=== PATIENT | female | born 1945 | race Caucasian/White ===

== ENCOUNTER 2024-05-27 11:15 | Day surgery (SDC) | payer MEDICARE ==
[~2024-05-27] VITALS: Ht 182.9 cm; Wt 73.5 kg
[2024-05-27] VITALS (11 sets, daily range): BP systolic 114–131; BP diastolic 44–76; PULSE 60–92; RESP 16–18; TEMP 97.6–98.7; O2SAT 94–99
[~2024-05-27 11:15] MED LIST: AMIO200T55 PO; APIX5TAB PO; CARV12.5 PO; CHOL125C6 PO; EMPA25TA PO; FURO-80 PO; HEPARIN ONE; NITROGLYCERIN 25MG/D5W 250ML 250 ML IV ONE; NS 1000ML 1,000 ML ONE; OLME20TA72 PO; PYRI50CA2 PO; SPIR25TA PO; SUBLIMAZE 100MCG/2ML ONE; THYR30TA PO; VERSED ONE; XYLOCAINE ONE; [UNRECOGNIZED DRUG - CODE] PO
[2024-05-27] MEDS: NS 1000ML 1,000 ML IV ONE (11:40)
[2024-05-27 11:49] LABS: +ADD MANUAL DIFF(NO CHRG) NO; BASOPHIL % 0.5 % (0.1-1.2); EOSINOPHIL # 0.1 10^3/uL (0.0-0.2); EOSINOPHIL % 1.3 % (0.0-5.0); HEMATOCRIT(ML) 43.9 % (36.0-46.0); HEMOGLOBIN 13.9 g/dL (12.0-15.0); LYMPHOCYTES # 1.16 10^3/uL1 (1.0-4.8); LYMPHOCYTES % 15.2 % (24.0-44.0); MEAN CORP HGB 29.1 pg (26-34); MEAN CORP HGB CONCENTRATION 31.7 g/dL (33-36.5); MONOCYTES # 0.6 10^3/uL (0.3-0.8); MONOCYTES % 7.3 % (5.0-12.0); NEUTROPHIL # 5.8 10^3/uL (1.8-7.7); NEUTROPHILS % 75.6 % (41.0-85.0); PLATELET COUNT 268 10^3/uL (150-400); RED BLOOD CELL 4.77 10^6/uL (4.00-5.20); RED CELL DISTRIBUTION WIDTH 15.9 % (11.5-14.5); WHITE BLOOD CELL 7.7 10^3/uL (4.5-11.0)
[2024-05-27 12:00] LABS: ANION GAP 16.9; BUN/CREATININE RATIO 20.17 (10.0-20.0); CALCIUM 10.1 mg/dL (8.4-10.5); CARBON DIOXIDE 23.4 mmol/L (20.0-32); CREATININE SERUM 3.52 mg/dL (0.59-1.40); EST GFR, NON-AA 12.5 (>/=60); POTASSIUM 4.3 mmol/L (3.6-5.2)
[2024-05-27 12:03] LABS: INR 1.3; PROTHROMBIN PROTIME 12.8 SEC (9.3-11.6)
[2024-05-27] MEDS ORDERED: SACU1TAB PO (15:19)
== END 2024-05-27 16:15 | disposition home or self-care (01) ==
LOC: SDC 11:15
PROVIDERS: ATTEND Internal Medicine
DX: I50.20 Unspecified systolic (congestive) heart failure (principal); I25.10 Atherosclerotic heart disease of native coronary artery without angina pectoris; I48.0 Paroxysmal atrial fibrillation; Z88.0 Allergy status to penicillin; Z88.2 Allergy status to sulfonamides
CPT/HCPCS: 93454; 85025; 36415; 80048; 85610; 85730; 99152; 93005; J7030 ×2; J1644 ×2; C1894; A6258 ×2; C1887; J3490; J2250; J3010; Q9967; A4618; E0617; C1769; C1766; Q9966

== ENCOUNTER 2024-07-08 09:32 | Observation (INO) | payer MEDICARE ==
[~2024-07-08] VITALS: Ht 182.9 cm; Wt 79.0 kg
[2024-07-08] VITALS (16 sets, daily range): BP systolic 97–156; BP diastolic 40–87; PULSE 54–61; RESP 14–16; TEMP 96.2–98.4; O2SAT 86–98
[~2024-07-08 09:32] MED LIST changes: -AMIO200T55 PO; +AMIO200T60 PO; -HEPARIN ONE; +SACU1TAB PO
[2024-07-08] MEDS: NS 1000ML 1,000 ML IV SCH (10:05)
[2024-07-08] MEDS ORDERED: [UNRECOGNIZED DRUG - CODE] PO (10:20)
[2024-07-08] MEDS ORDERED: MAGN400T27 PO (10:20)
[2024-07-08] MEDS ORDERED: [UNRECOGNIZED DRUG - CODE] PO (10:20)
[2024-07-08 10:25] LABS: BASOPHIL % 0.1 % (0.1-1.2); EOSINOPHIL # 0.1 10^3/uL (0.0-0.2); EOSINOPHIL % 1.4 % (0.0-5.0); HEMATOCRIT(ML) 39.5 % (36.0-46.0); HEMOGLOBIN 12.1 g/dL (12.0-15.0); LYMPHOCYTES # 0.76 10^3/uL1 (1.0-4.8); LYMPHOCYTES % 10.6 % (24.0-44.0); MEAN CORP HGB 30.6 pg (26-34); MEAN CORP HGB CONCENTRATION 30.6 g/dL (33-36.5); MONOCYTES # 0.4 10^3/uL (0.3-0.8); NEUTROPHIL # 5.9 10^3/uL (1.8-7.7); NEUTROPHILS % 81.8 % (41.0-85.0); PLATELET COUNT 318 10^3/uL (150-400); RED BLOOD CELL 3.95 10^6/uL (4.00-5.20); RED CELL DISTRIBUTION WIDTH 16.7 % (11.5-14.5); WHITE BLOOD CELL 7.2 10^3/uL (4.5-11.0)
[2024-07-08 10:31] LABS: +ADD MANUAL DIFF(NO CHRG) NO
[2024-07-08 10:41] LABS: INR 1.4; PROTHROMBIN PROTIME 13.9 SEC (9.3-11.6)
[2024-07-08 10:43] LABS: ALBUMIN(ML) 3.3 g/dL (3.4-5.0); ALBUMIN/GLOBULIN RATIO 0.868; ANION GAP 7.9; BUN/CREATININE RATIO 11.11 (10.0-20.0); CARBON DIOXIDE 36.4 mmol/L (20.0-32); CREATININE SERUM 2.16 mg/dL (0.59-1.40)
[2024-07-08 10:46] LABS: POTASSIUM 2.3 mmol/L (3.6-5.2)
[2024-07-08] MEDS ORDERED: SODI10PO PO (10:56)
[2024-07-08] MEDS: NS 1000ML/KCL 20MEQ 1,000 ML IV ONE (11:30)
[2024-07-08] MEDS: NS 1000ML/KCL 20MEQ 1,000 ML IV SCH (11:34)
[2024-07-08] MEDS ORDERED: KLOR-CON PO ONE (12:11)
[2024-07-08] MEDS: KLOR-CON PO ONE (12:13)
[2024-07-08] MEDS ORDERED: HEPARIN ONE ×2 (13:17→14:20)
[2024-07-08] MEDS ORDERED: TRANDATE IV ONE (13:33)
[2024-07-08] MEDS ORDERED: ASPIRIN ONE (14:19)
[2024-07-08] MEDS ORDERED: PLAVIX ONE (14:19)
[2024-07-09 04:00] VITALS: BP 145/66; PULSE 58; RESP 16; TEMP 98; O2SAT 97
[2024-07-09 06:17] LABS: HEMATOCRIT(ML) 37.3 % (36.0-46.0); HEMOGLOBIN 11.3 g/dL (12.0-15.0); MEAN CORP HGB 30.7 pg (26-34); MEAN CORP HGB CONCENTRATION 30.3 g/dL (33-36.5); MEAN CORP VOLUME 101.4 fL (78-100); RED BLOOD CELL 3.68 10^6/uL (4.00-5.20); RED CELL DISTRIBUTION WIDTH 17.1 % (11.5-14.5); WHITE BLOOD CELL 7.5 10^3/uL (4.5-11.0)
[2024-07-09 06:27] LABS: ALBUMIN/GLOBULIN RATIO 0.882; ANION GAP 7.7; BUN/CREATININE RATIO 12.08 (10.0-20.0); CALCIUM 8.8 mg/dL (8.4-10.5); CARBON DIOXIDE 34.1 mmol/L (20.0-32); CREATININE SERUM 1.82 mg/dL (0.59-1.40); EST GFR, NON-AA 26.9 (>/=60); POTASSIUM 2.8 mmol/L (3.6-5.2)
[2024-07-09 08:19] VITALS: BP 146/72; PULSE 58; RESP 16; TEMP 98.2; O2SAT 95
[2024-07-09 09:37] VITALS: PULSE 60; O2SAT 91
[2024-07-09 12:15] VITALS: BP 147/68; PULSE 60; RESP 16; TEMP 98.6; O2SAT 96
[2024-07-09] MEDS ORDERED: CLOP75TA PO (13:13)
[2024-07-09] MEDS ORDERED: ASPI-1007 PO (13:13)
[2024-07-09] MEDS: KLOR-CON PO ONE (14:13)
[2024-07-09 14:38] VITALS: BP 147/68; PULSE 60; RESP 16; TEMP 98.6; O2SAT 96
[2024-07-10] MEDS ORDERED: PLAVIX PO SCH (09:00)
[2024-07-10] MEDS ORDERED: ASPIRIN EC PO SCH (09:00)
== END 2024-07-09 14:25 | disposition home health service (06) ==
LOC: SDC 09:32 → OBS 15:00
PROVIDERS: ADMIT Internal Medicine; ATTEND Internal Medicine
DX: I25.110 Atherosclerotic heart disease of native coronary artery with unstable angina pectoris (principal); I50.9 Heart failure, unspecified; N18.9 Chronic kidney disease, unspecified; Z79.899 Other long term (current) drug therapy; Z88.2 Allergy status to sulfonamides
CPT/HCPCS: 93458; 80053 ×2; 85025; 82948; 36415 ×2; 85610; 85730; 99153; 99152; 92978; 92979; 85027; 93306; G0378 ×3; J7030; J1644 ×2; C1769 ×3; C1894; A6258; J3490 ×4; J2250; J3010; C9600; A4618; C1725 ×4; E0617; C1874 ×2; C1760; C1887 ×2; C1753; Q9967; 76937

== ENCOUNTER → 2024-09-28 | Outpatient (CLI) | payer MEDICARE ==
[~2024-09-28] MED LIST changes: +ASPI-1007 PO; +CLOP75TA PO; +MAGN400T27 PO; -NITROGLYCERIN 25MG/D5W 250ML 250 ML IV ONE; -NS 1000ML 1,000 ML ONE; +SODI10PO PO; -SUBLIMAZE 100MCG/2ML ONE; -VERSED ONE; -XYLOCAINE ONE; +[UNRECOGNIZED DRUG - CODE] PO; +[UNRECOGNIZED DRUG - CODE] PO
[2024-09-28 15:04] LABS: CREATININE SERUM 1.74 mg/dL (0.59-1.40); EST GFR, NON-AA 28.3 (>/=60)
== END | disposition home or self-care (01) ==
LOC: RAD 14:21
PROVIDERS: ATTEND Internal Medicine
DX: J90 Pleural effusion, not elsewhere classified (principal); I25.10 Atherosclerotic heart disease of native coronary artery without angina pectoris; Z00.00 Encounter for general adult medical examination without abnormal findings
CPT/HCPCS: 36415; 71250; 82565